=== PATIENT | male | born 1955 | race Caucasian/White ===

== ENCOUNTER 2023-11-26 23:21 | Emergency (ER) | payer MEDICARE, OTHER, SELFPAY ==
[2023-11-26 23:30] VITALS: BP 154/97
--- NOTE | 2023-11-27 00:01 | ED.GENMED ---
History of Present Illness
General
Chief Complaint: Flank Pain
Source: patient
Exam Limitations: none
Time Seen by Provider: 11/26/23 23:42
History of Present Illness
History of Present Illness:
This is a 68 year old male that comes in with c/o left flank pain. States that this started about 2 hour ago. States that he has had trouble moving his bowel today but he did have a BM yesterday. States that he is nauseated and lightheaded. Denies
any fever, chills, chest pain, SOB, vomiting, diarrhea, headache, urinary burning.
Past History
Past History
ED Past Medical History: CAD, GERD, HTN, Hypercholesterolemia and Other (Kidney stones)
ED Past Surgical History: Cardiac (Stents X 2) and Other (Hernia repair)
Social History
Tobacco: Former smoker
Alcohol: Occasional
Personal:
Living: with family
Review of Systems
Review of Systems
All Other Systems: ROS reviewed and negative except as documented in HPI and ROS
Constitutional: Reports no symptoms; Denies fever or chills
EENT: Reports no symptoms
Respiratory: Reports no symptoms; Denies cough or trouble breathing
Cardiac: Reports no symptoms; Denies chest pain
ABD/GI: Reports abdominal pain and nausea; Denies vomiting or diarrhea
: Reports no symptoms; Denies dysuria, frequency or urgency
Musculoskeletal: Reports no symptoms
Skin: Reports no symptoms
Neurological: Reports other (Lightheaded); Denies dizzy or headache
Psychiatric: Reports no symptoms
Phy Exam
General Physical Exam
General Presentation: mild distress
General age: appears stated age
General Skin: warm and dry
General Habitus: elderly
General Mental: alert
General Hydration: dry mucous membranes
ENT Exam
ENT Exam: TM's normal, pharynx normal and neck supple
Eye Exam
Eye Exam: EOMI
Cardiovascular Exam
Cardiovascular Exam: regular rate/rhythm, no edema, no murmur and normal peripheral pulses
Pulmonary Exam
Pulmonary Exam: lungs clear, no respiratory distress, no rales, chest non tender, no crackles, no rhonchi, no wheezing and no cough
Gastrointestinal Exam
Gastrointestinal Exam: normal bowel sounds, soft, no organomegaly, no pulsatile mass, non distended, no cva tenderness and tender (Left sided (states it doesn't hurt more then it did with out palpation))
Musculoskeletal Exam
Musculoskeletal Exam: full ROM and no edema
Skin Exam
Skin Exam: normal color, warm/dry, no rash and no petechia
Psychiatric Exam
Psychiatric Exam: normal mood/affect
Course
Orders/Labs/Results
Orders:
Orders
11/26/23 23:57
Complete Blood Count/With Diff Urgent
Comprehensive Metabolic Panel Urgent
11/27/23 00:01
0.9% Sodium Chloride 1000 ml [Nss] 1,000 ml IV BOLUS
HYDROmorphone [Dilaudid] 1 mg IV NOW STA
Ketorolac [Toradol] 30 mg IV NOW STA
11/27/23 00:02
CT Abd/pel Without Iv Or Oral Urgent
Comment:
Reason For Exam: Left flank pain
11/27/23 00:03
Ondansetron Injectable [Zofran] 4 mg IV NOW STA
11/27/23 01:11
HYDROmorphone [Dilaudid] 0.5 mg .ROUTE .STK-MED ONE
11/27/23 01:12
HYDROmorphone [Dilaudid] 0.5 mg IV NOW STA
11/27/23 01:32
Tamsulosin [Flomax] 0.4 mg PO NOW STA
11/27/23 01:43
Urinalysis Reflex To Culture Urgent
Date Specimen was Collected: 11/27/23
Time Specimen was Collected: 00:13
Urine Microscopic Reflex Cult Urgent
Abnormal Lab Results
11/26/23 11/27/23
23:57 01:43
WBC 11.0 H 10^3/uL
(4.8-10.8)
MCV 95.8 H fL
(80.0-94.0)
MCH 33.2 H pg
(27.0-31.0)
RDW 15.5 H %
(11.5-14.5)
Absolute Neuts (auto) 6.6 H 10^3/uL
(1.4-6.5)
Absolute Monos (auto) 0.9 H 10^3/uL
(0.1-0.6)
Chloride 110 H mmol/L
(98-107)
BUN 25 H mg/dl
(9-20)
Creatinine 1.4 H mg/dL
(0.7-1.3)
Glucose 128 H mg/dl
(70-99)
Urine Ketones Trace A
(Negative)
Ur Occult Blood Reflex 4+ A
(Negative)
Leukocyte Esterase Rfl Trace A
(Negative)
Urine RBC 50-60 A /HPF
(0-2)
Urine Bacteria (Reflex) Few A
(Negative)
11/26/23 23:57
11/26/23 23:57
Slightly elevated, Slight Anemia, Chloride slightly elevated. Dehydration. Glucose nonfasting. Urine negative for infection positive for blood
Vital Signs
Initial and Last Documented VS:
Initial Vital Signs
Temp Pulse Resp BP Pulse Ox
98.3 F 73 20 154/97 95
11/26/23 23:30 11/26/23 23:30 11/26/23 23:30 11/26/23 23:30 11/26/23 23:30
Last Documented Vital Signs
Temp Pulse Resp BP Pulse Ox
98.3 F 71 10 134/85 94
11/26/23 23:30 11/27/23 02:00 11/27/23 02:00 11/27/23 02:00 11/27/23 02:00
MDM/Problems Addressed
Differential Diagnosis Includes:
Renal calculus. Diverticulitis.
MDM/Problems Addressed:
This is a 68 year old male that comes in with c/o left sided abd pain. States that he also has pain in his back. States that this started 2 hours ago
Will get labs, CT scan, give IV fluids and medicate for pain.
Chronic conditions affecting care:
Renal calcululs
Acute Exacerbation and/or Progression of Chronic Illness:
Renal calcululs
*Radiology
Radiology exam reviewed: radiology read reviewed (CT night hawk- 4mm stone within the distal left ureter resulting in mild left ydroureter. NO bowel obstructioin. Normal gallbladder. Status post appendectomy. Incidentals: Diverticulosis without
evidence of diverticulitis. No obstructive uropathy. No hepatic or pancreatic mass. No abd aortic) and all reviewed NAD by ED Provider (CT cont- no abd aortic aneurysm. No acute osseous abnormality. Right lower lobe pulmonary nodule measuring
[id number]. Recommend further workup. Calcified coronary atherosclerosis. No acute abnormality within the visualized soft tissues. )
*Pulse Oximetry
Patient hypoxic: no
*EKG
Interpreted by ED Provider?: NA
Rate: EKG- N/A
*Treatment Manager Interpretation
Rate: Treatment Manager- N/A
*Critical Care Note
Total Time (30-74mins, 75-104mins- exclusive of procedures): Not Applicable
ED Attending Note
-
Portions of this chart may have been created with voice recognition software.� Occasional wrong word or��sound alike� substitutions may have occurred due to the inherent limitations of voice recognition software.
Discharge Plan
Departure
Patient Disposition: Home (Routine Discharge)
Date of Disposition: 11/27/23
Time of Disposition: 02:13
Patient with high blood pressure during this ER visit?: Yes
Condition: Good
Covid-19: Not Applicable
Discharge Problem:
Renal calculus, left
Instructions: Renal Colic (DC), How to Strain Your Urine, BLOOD PRESSURE, Narcotic Pain Medication
Prescriptions:
New
tamsulosin [Flomax] 0.4 mg capsule
0.4 mg PO HS Qty: 7 0RF
ondansetron 4 mg tablet,disintegrating
4 mg PO Q8H PRN (Reason: nausea and vomiting) Qty: 7 0RF
oxycodone 5 mg tablet
5 mg PO Q6H PRN (Reason: Pain) Qty: 8 0RF
Referrals:
Jean Claude Lares MD [Family Provider] -
Micheal Tobin Jr., MD [Active] - Follow up in 5-7 days
Activity Restrictions/Additional Instructions:
As discussed, you have a 4mm stone in the left ureter that is almost to the bladder. Please increase your water intake to 8-8oz glasses daily. You have had three prescription sent to your Pharmacy. The first is Zofran that will help with any
nausea/vomiting. The second is a narcotic pain medication for severe pain. This will make you tired. Please try and use Tylenol 1000mg every 6 hours and alternate with Ibuprofen 600mg every 6 hours with food. So if you take Tylenol at 9am you can
take the Ibuprofen at 12 noon and then the Tylenol will be due at 3pm and Ibuprofen at 6pm. The narcotic pain medication will make you tired. Please no driving or alcohol when taking. Please strain your urine. Follow up with the Urologist in the
next 5-7 days. IF YOU HAVE INCREASED OR CHANGING PAIN, FEVER, OR YOU HAVE ANY OTHER CONCERNS PLEASE RETURN TO THE EMERGENCY ROOM.
Interventions
Interventions:
*Risk Screen - Suicide Last Done: 11/27/23 01:15
*General Assessment Last Done: 11/27/23 01:15
*Neglect/Abuse Screening Last Done: 11/27/23 01:15
ED- Fall Risk Assessment Last Done: 11/27/23 01:15
*ED COVID-19 Vaccine History Last Done: 11/27/23 01:15
GT-Vrcfza-Irucfwoeeq Assessment Last Done: 11/27/23 00:15
ED-Male Genitourinary Assessment Last Done: 11/27/23 00:15
Discharge Date and Time
Print Language: VENEZUELAN
[2023-11-27 00:04] LABS: % Basophils 0.5 % (0-2); % Eosinophils 1.3 % (0-6); % Immature Granulocytes 0.4 % (0-0.5); % Monocytes 8.3 % (1.7-9.3); % Neutrophils 59.5 % (42.2-75.2); Absolute Basophils 0.1 10^3/uL (0-0.2); Absolute Eosinophils 0.1 10^3/uL (0-0.7); Absolute Lymphocytes 3.3 10^3/uL (1.2-3.4); Absolute Monocytes 0.9 10^3/uL (0.1-0.6); Absolute Neutrophils 6.6 10^3/uL (1.4-6.5); Hematocrit 47.9 % (39.0-52.0); Hemoglobin 16.6 g/dL (13.0-18.0); Mean Corp Hgb Conc. 34.7 g/dL (33.0-37.0); Mean Corpuscular Hgb 33.2 pg (27.0-31.0); Mean Corpuscular Volume 95.8 fL (80.0-94.0); Mean Platelet Volume 9.6 fL (7.4-10.4); Nucleated Red Blood Cells % 0 % (-); Platelet Count 189 10^3/uL (130-400); Red Cell Dist. Width 15.5 % (11.5-14.5)
[2023-11-27] MEDS: ZOFRAN 4 MG IV (00:07)
[2023-11-27] MEDS: DILAUDID 1 MG IV (00:07)
[2023-11-27] MEDS: TORADOL 30 MG IV (00:08)
[2023-11-27] MEDS: NSS 1000 IV (00:10)
[2023-11-27 00:38] LABS: ALT (SGPT) 23 U/L (0-50); AST (SGOT) 32 U/L (17-59); Albumin 4.4 g/dl (3.5-5.0); Alkaline Phosphatase 51 U/L (38-126); Blood Urea Nitrogen 25 mg/dl (9-20); Calcium 9.9 mg/dl (8.4-10.2); Carbon Dioxide 24 mmol/L (22-30); Chloride 110 mmol/L (98-107); Glucose 128 mg/dl (70-99); Potassium 4.5 mmol/L (3.5-5.1); Sodium 141 mmol/L (135-145); Total Bilirubin 0.8 mg/dl (0.2-1.3); Total Protein 7.1 g/dl (6.3-8.2); eGFR 54.07
[2023-11-27 01:09] VITALS: BP 144/88
[2023-11-27] MEDS: DILAUDID 0.5 MG IV (01:12)
[2023-11-27] MEDS: FLOMAX 0.4 MG PO (01:41)
[2023-11-27 01:55] LABS: Urine Albumin Trace (Neg - Trace); Urine Bilirubin Negative (Negative); Urine Character Clear (Clear); Urine Color Yellow; Urine Glucose Negative (Negative); Urine Ketone Trace (Negative); Urine Leukocyte Trace (Negative); Urine Nitrite Negative (Negative); Urine Occult Blood 4+ (Negative); Urine Urobilinogen Negative (Neg - 1+)
[2023-11-27 02:00] VITALS: BP 134/85
[2023-11-27 02:10] LABS: Urine Mucus Moderate
[2023-11-27 02:11] LABS: Urine Bacteria Few (Negative); Urine Red Blood Cell 50-60 /HPF (0-2)
== END 2023-11-27 02:31 | disposition home or self-care (01) ==
LOC: EMR 23:21
PROVIDERS: Clinical Nurse Specialist Family Health; EMERGENCY PHYSICIAN Emergency Medicine; FAMILY PHYSICIAN Family Medicine
DX: N13.2 Hydronephrosis with renal and ureteral calculous obstruction (principal); R42 Dizziness and giddiness; R10.9 Unspecified abdominal pain; R11.0 Nausea; I25.10 Atherosclerotic heart disease of native coronary artery without angina pectoris; K21.9 Gastro-esophageal reflux disease without esophagitis; I10 Essential (primary) hypertension; E78.00 Pure hypercholesterolemia, unspecified; Z87.442 Personal history of urinary calculi; Z95.5 Presence of coronary angioplasty implant and graft; Z87.891 Personal history of nicotine dependence
CPT/HCPCS: 99284; 96374; 96375 ×2; 96361; 96376; 74176; 80053; 81003; 81015; 85025